=== PATIENT | female | born 1945 | race Caucasian/White ===

== ENCOUNTER 2017-08-05 08:21 | Inpatient (IN) ==
[2017-08-05] MEDS ORDERED: Naloxone 0.4 MG/ML INJ IVP PRN (10:29)
[2017-08-05] MEDS ORDERED: Acetaminophen 325 MG TABLET PO PRN (10:29)
--- NOTE | 2017-08-05 11:02 | Internal Med History&Physical ---
Date of Encounter: 08/05/17 Time of Encounter: 11:00 Internal Medicine - H&P: HPI Chief complaint: Nausea and vomiting along with diarrhea Admitted From: Hospital to Hospital Transfer History of present illness: Ms. Haddad is a 72 year old female patient with history of CHF, diabetes who presented to the ER at [facility] with complaints of nausea vomiting and diarrhea. She reports that her symptoms have been going on for 2 weeks. She was previously treated for urine infection with antibiotics. She denies any fevers or chills. She denies any abdominal pain. No chest pain at this time but according to ED records she reported chest pain at the facility. She had also noticed some episodes of blood in her stool. No dizziness or lightheadedness. Past Med Surg Social Fam HX - Past Medical History Attestation: Yes The following information was validated with the patient. Source: other (Reviewed records from [facility]) Medical history: CHF, DVT, diabetes - Past Surgical History Surgical History: appendectomy, cholecystectomy, knee replacement Additional surgical history: Tonsillectomy, Hernia repair. - Social History Smoking Status: Former smoker Alcohol use: none Drug use: none - Additional Family History Additional family history: Reviewed family history and found to be noncontributory at this time Internal Medicine - H&P: Meds 3 Allergy/AdvReac Type Severity Reaction Status Date / Time No Known Allergies Allergy Verified 08/05/17 10:49 All Systems PM: A 10-system review of systems was performed and is negative for pertinent findings except as documented above in the HPI. - Constitutional Constitutional: malaise, no chills, no fever(s), no night sweats - EENT Eyes: no change in vision, no discharge, no pain, no photophobia Ears: no ear discharge, no ear pain, no tinnitus Nose, mouth and throat: no dysphagia, no nasal discharge, no neck pain, no sore throat - Cardiovascular Cardiovascular ROS IM: no chest pain, no diaphoresis, no dyspnea, no lightheadedness, no palpitations, no syncope - Respiratory Respiratory: no cough, no dyspnea, no wheezing, no excessive phlegm production - Gastrointestinal Gastrointestinal: diarrhea, nausea, vomiting - Genitourinary Genitourinary: no change in urinary stream, no dysuria, no flank pain, no hematuria - Musculoskeletal Musculoskeletal ROS IM: no numbness, no tingling - Integumentary Integumentary IM: no rash, no unusual bruising - Neurological Neurological ROS: no confusion, no convulsions, no focal weakness, no numbness, no tingling, no tremor(s) - Hematologic/Lymphatic Hematologic/Lymphatic: no easy bruising - Constitutional Vitals: Temp Pulse Resp BP Pulse Ox 99.3 F 81 25 112/53 93 08/05/17 10:21 08/05/17 10:21 08/05/17 10:21 08/05/17 10:21 08/05/17 10:21 General appearance: Present: mild distress, A&O X 3, pleasant, answers questions appropriately - ENT ENT exam: Present: mucous membranes dry - Neck Neck exam general surgery: Present: supple, trachea midline. Absent: lymphadenopathy - Respiratory Respiratory exam: Present: CTAB. Absent: accessory muscle use, rales, rhonchi, wheezes - Cardiovascular Cardiovascular exam: Present: RRR, +S1, +S2. Absent: diastolic murmur, gallop, rubs, systolic murmur - GI/Abdominal GI/Abdominal exam: Present: normal bowel sounds, soft, no peritoneal signs. Absent: distended, tenderness - Extremities Exam Extremities exam: Present: warm, radial pulses palpable and symmetrical. Absent : calf tenderness, cyanotic, pedal edema - Neurological Exam Neurological exam: Present: CN II-XII intact, oriented X3, no focal deficits. Absent: facial droop, speech deficit - Skin Skin exam: Present: dry, intact Internal Med - H&P Results - Labs Labs: WBC 12.7 with 14 bands hemoglobin 10.3, platelets 78 urine shows 0-2 WBC, 3+ bacteria stool for occult blood was negative PT 13.1, INR 1.1, sodium 142, potassium 4.9, BUN 47, creatinine 2.6 - Impressions CT of the chest shows cardiomegaly, right pleural effusion, pulmonary congestion CT abdomen and pelvis shows hydronephrosis and perinephric stranding- nonspecific but could be related to a recently passed stone in appropriate clinical setting. - Assessment and plan (1) Sepsis Current Visit: Yes Status: Acute Assessment and plan: Patient presenting with sepsis. Etiology uncertain. She has been having diarrhea. Will check stool for C. difficile. She did receive Levaquin earlier today. We will hold off on further antibiotics till stool for C. difficile resulted. CT abdomen and pelvis shows perinephric stranding without any stone. Could be pyelonephritis if stool for C. difficile is negative. Lactic acidosis improving. We will continue to trend. Qualifiers: Sepsis type: sepsis due to unspecified organism Qualified Code(s): A41.9 - Sepsis, unspecified organism (2) Nausea vomiting and diarrhea Current Visit: Yes Status: Acute Assessment and plan: CT of the abdomen and pelvis shows perinephric stranding without any stone. Possible recently passed stone. However she is having diarrhea and was on antibiotics recently. Concern for C. difficile. We will check stool for C. difficile. (3) Dehydration, moderate Current Visit: Yes Status: Acute Assessment and plan: Treat with IV fluids. Monitor renal function. (4) Acute kidney injury Current Visit: Yes Status: Acute Assessment and plan: Acute kidney injury. Treat with IV fluids. Monitor renal function. Likely related to dehydration with nausea vomiting and diarrhea. (5) History of congestive heart failure Current Visit: Yes Status: Chronic Assessment and plan: History of CHF. Unspecified type. Will get 2-D echocardiogram. BNP is elevated however patient is not in any respiratory distress at this time. (6) Elevated troponin Current Visit: Yes Status: Acute Assessment and plan: Could be related to demand ischemia with acute illness and dehydration. Will trend troponins. She did have chest pain earlier but no chest pain at this time. We will get 2-D echocardiogram. (7) Diabetes mellitus, type 2 Current Visit: Yes Status: Chronic Assessment and plan: Monitor blood sugars. Sliding scale insulin. Qualifiers: Diabetes mellitus terminal operations supervisor insulin use: unspecified alf insulin use status Diabetes mellitus complication status: with kidney complications Diabetes mellitus complication detail: with chronic kidney disease Chronic kidney disease stage: stage 2 (mild) Qualified Code(s): E11.22 - Type 2 diabetes mellitus with diabetic chronic kidney disease; N18.2 - Chronic kidney disease, stage 2 (mild) - Time Spent With Patient Total time spent is greater than 50% in coordination of care (as documented) at patient's floor/unit and/or counseling patient:
[2017-08-05] MEDS ORDERED: D5% in Water 1,000 ML IVC PRN (12:01)
[2017-08-05] MEDS ORDERED: Dextrose Gel 15 GM/37.5 ML TUBE PO PRN ×2 (12:01)
[2017-08-05] MEDS ORDERED: *HR* Dextrose 50 % in Water (Syg) 50 ML SYRINGE IVP PRN (12:01)
[2017-08-05] MEDS: Ringers Solution, Lactated 1,000 ML IVC SCH (12:08)
[2017-08-05] MEDS: Insulin LISPRO 300 UNITS/3 ML VIAL SQ SCH ×3 (13:59→22:27)
[2017-08-05] MEDS ORDERED: Insulin LISPRO 300 UNITS/3 ML VIAL SQ SCH ×2 (16:30→21:00)
[2017-08-05] MEDS ORDERED: Levofloxacin 750 MG/150 ML 750 MG/150 ML BAG IVPB SCH (17:00)
[2017-08-05 17:33] LABS: Red Blood Count 2.82 M/mcL (3.82-4.97)
[2017-08-05 17:35] LABS: Hematocrit 27.8 % (35.3-44.9); Hemoglobin 9.3 g/dL (11.5-15.4); Immature Platelets 4.6 % (1.1-6.1); Mean Corpuscular HGB Conc 33.5 g/dL (31.6-35.5); Mean Corpuscular Volume 98.6 fL (83.0-100.0); Mean Platelet Volume 11.4 fL (9.4-12.4); Red Cell Distribution Width 12.6 % (11.5-14.5)
[2017-08-05 17:46] LABS: Platelet Count 62 K/mcL (140-400)
[2017-08-05] MEDS ORDERED: *HR* Heparin 5,000 UNIT/ML VIAL SQ SCH (18:00)
[2017-08-05 18:16] LABS: Lymphocytes # 1.4 K/mcL (0.6-4.6); Neutrophils # 14.6 K/mcL (1.6-8.9); Platelet Estimate Decreased (Normal)
[2017-08-06] MEDS: Ringers Solution, Lactated 1,000 ML IVC SCH (03:10)
[2017-08-06 05:15] LABS: Basophils % 0.2 %; Eosinophils % 0.1 %; Hemoglobin 8.8 g/dL (11.5-15.4); Mean Corpuscular Volume 98.1 fL (83.0-100.0)
[2017-08-06 05:17] LABS: Hematocrit 26.1 % (35.3-44.9); Immature Granulocytes % 4.1 % (0-4); Immature Platelets 4.6 % (1.1-6.1); Lymphocytes # 1.6 K/mcL (0.6-4.6); Lymphocytes % 10.3 %; Mean Corpuscular HGB Conc 33.7 g/dL (31.6-35.5); Mean Corpuscular Hemoglobin 33.1 pg (28.0-33.3); Mean Platelet Volume 10.9 fL (9.4-12.4); Monocytes # 0.8 K/mcL (0.0-1.3); Monocytes % 5.1 %; Neutrophils # 12.2 K/mcL (1.6-8.9); Red Blood Count 2.66 M/mcL (3.82-4.97); Red Cell Distribution Width 12.8 % (11.5-14.5); Segmented Neutrophils % 80.2 %
[2017-08-06 05:36] LABS: Calcium 9.3 mg/dL (8.6-10.3); Chol/HDL Ratio 2.8 (0-4.9); Potassium 4.9 mEq/L (3.5-5.1)
[2017-08-06 05:45] LABS: Platelet Count 56 K/mcL (140-400)
[2017-08-06 05:46] LABS: Platelet Estimate Decreased (Normal)
[2017-08-06] MEDS: Insulin LISPRO 300 UNITS/3 ML VIAL SQ SCH ×4 (08:06→21:30)
[2017-08-06] MEDS: Aspirin Enteric Coated 81 MG Tablet PO SCH (08:08)
[2017-08-06 08:38] LABS: Estimated Average Glucose 131 mg/dl; Hemoglobin A1C 6.2 %
--- NOTE | 2017-08-06 11:02 | Electrophysiology Consult Note ---
Date of Encounter: 08/06/17 Time of Encounter: 10:58 Assessment and Plan (1) Elevated troponin Current Visit: Yes Status: Acute Type II ID secondary to sepsis and ARF. Would treat conservatively and will check echo. Discussion w patient/family: The assessment and plan as outlined above was discussed with the patient and/or family members who expressed understanding and agreement. All questions were answered. Thank you for involving us in the care of your patient. Please call with any questions. History of Present Illness Consult date: 08/06/17 Requesting physician: Calvin Cortez Consult reason: Abnormal troponin Chief complaint: Nausea, vomiting, blood in stools. History of present illness: Ms. Haddad is a 72 year old female presented to outside hospital with GI complaints including blood on stool. She denies cardiac complaint including chest pain. She has been diagnosed with sepsis and ARF. Troponin has also been noted to be elevated. Past Med Surg Social Fam HX - Past Medical History Medical history: CHF, DVT, diabetes - Past Surgical History Surgical History: appendectomy, cholecystectomy, knee replacement Additional surgical history: Tonsillectomy, Hernia repair. - Social History Smoking Status: Former smoker Alcohol use: none Drug use: none Medications and Allergies Aspirin [Lo-Dose Aspirin EC] 81 mg PO DAILY 08/05/17 [History] C,E,Zinc,Copper 11/Qltcq5o/Lut [Ocuvite Adult 50 Plus Softgel] 1 cap PO DAILY [History] Citalopram Hydrobromide [Citalopram HBr] 20 mg PO DAILY 08/05/17 [History] Colesevelam [Welchol] 1,250 mg PO DAILY 08/05/17 [History] Ergocalciferol (VITAMIN D2) [Drisdol (50,000 Unit)] 50,000 unit PO QWEEK [History] Ferrous Sulfate [Ferrous Sulfate] 325 mg PO DAILY 08/05/17 [History] Furosemide [Lasix] 40 mg PO BID 08/05/17 [History] Levothyroxine [Synthroid] [place] [address]/05/17 [History] Lisinopril [Lisinopril] 2.5 mg PO DAILY 08/05/17 [History] Metformin HCl [Metformin HCl] 1,000 mg PO BID 08/05/17 [History] Mupirocin [Bactroban Oint] 1 appl TP TID 08/05/17 [History] Pioglitazone HCl [Pioglitazone HCl] 30 mg PO DAILY 08/05/17 [History] Simvastatin [Zocor] 20 mg PO HS 08/05/17 [History] 3 Allergy/AdvReac Type Severity Reaction Status Date / Time No Known Allergies Allergy Verified 08/05/17 16:32 All Systems Review: The remainder of the systems were reviewed and are negative Physical Examination Vital Signs, Last 4 Hours Temp Pulse Resp BP Pulse Ox 08/06/17 08:20 98 08/06/17 07:11 98.7 F 73 20 117/62 100 General: Conversant, No Apparent Distress HEENT: Atraumatic, Normocephaly, Mucus Membranes Moist Neck: No JVD, Normal carotid pulses Cardiac: Reg Rate and Rhythm, Normal S1 and S2, No Murmur Lungs: Normal Breath Sounds, No Wheeze, Rales, Rhonchi Neuro: Alert and responsive, No focal deficits noted Abdomen: Soft, Non-Tender Extremities: Other (mild edema, normal pulses) Results 08/06/17 04:36 08/06/17 04:36 Lab Results 08/05/17 08/05/17 08/05/17 10:48 10:48 16:38 WBC 17.0 H Hgb 9.3 L Hct 27.8 L Plt Count 62 L Sodium Potassium Chloride Carbon Dioxide BUN Creatinine Glucose Calcium Troponin I 0.26 H* 0.34 H* 08/06/17 08/06/17 04:36 04:36 WBC 15.2 H Hgb 8.8 L Hct 26.1 L Plt Count 56 L Sodium 138 Potassium 4.9 Chloride 107 Carbon Dioxide 25 BUN 62 H Creatinine 2.72 H Glucose 144 H Calcium 9.3 Troponin I - EKG Interpretation EKG results cardiology: other (LAD, LVH) Consult Discharge Plan - Plan Referrals: Amparo Belcher, ASSISTANT BOOKKEEPER [Primary Care Provider] -
--- NOTE | 2017-08-06 15:44 | Internal Med Progress Note ---
Date of Encounter: 08/06/17 Time of Encounter: 15:38 - Assessment and plan (1) Sepsis Current Visit: Yes Status: Acute Assessment and plan: high latic acid but now normal. unknown source. possibility for UTI as cloudy urine. CT of the abdomen and pelvis shows perinephric stranding without any stone. Possible recently passed stone. However she is also having gastroenteritis. no initial culture done during admission. continue levaquin- started at [facility] and added Zosyn but deescalate once pt start improving further. Qualifiers: Sepsis type: sepsis due to unspecified organism Qualified Code(s): A41.9 - Sepsis, unspecified organism (2) Gastroenteritis Current Visit: Yes Status: Acute Assessment and plan: N/V/D. better now. supportive treatment . IVF, as tolerating diet. pending stool for C. difficile. (3) Dehydration, moderate Current Visit: Yes Status: Acute Assessment and plan: better. IVF and encourage oral diet. (4) Acute kidney injury Current Visit: Yes Status: Acute Assessment and plan: Acute kidney injury. gentle hydration with i/o and BMP monitoring. Likely prerenal. avoid nephrotoxic drugs. (5) History of congestive heart failure Current Visit: Yes Status: Chronic Assessment and plan: echo done in july 2017 with EF 60%. History of mild diastolic heart failure. BNP is elevated however patient is not in any respiratory distress at this time. will repeat BNP. (6) Elevated troponin Current Visit: Yes Status: Acute Assessment and plan: no active chest pain. Could be related to demand ischemia with acute illness and dehydration. cardio on board. (7) Diabetes mellitus, type 2 Current Visit: Yes Status: Chronic Assessment and plan: Monitor blood sugars. continue accuchecks and Sliding scale insulin. Qualifiers: Diabetes mellitus extermination supervisor insulin use: unspecified extermination supervisor insulin use status Diabetes mellitus complication status: with kidney complications Diabetes mellitus complication detail: with chronic kidney disease Chronic kidney disease stage: stage 2 (mild) Qualified Code(s): E11.22 - Type 2 diabetes mellitus with diabetic chronic kidney disease; N18.2 - Chronic kidney disease, stage 2 (mild) (8) DVT prophylaxis Current Visit: Yes Status: Acute Assessment and plan: scds - Time Spent With Patient Total time spent is greater than 50% in coordination of care (as documented) at patient's floor/unit and/or counseling patient: 25 - 35 minutes - Subjective Interval history: better N/V/D. family at bedside. reviewed the labs with trending down wbc, HB. no active bleeding. denies f/c/abdomen pain/CP/SOB. cloudy urine somewhat- ordered U/A - Constitutional Vitals: Temp Pulse Resp BP Pulse Ox 98.6 F 72 20 128/63 99 08/06/17 11:28 08/06/17 11:28 08/06/17 11:28 08/06/17 11:28 08/06/17 11:28 General appearance: Present: A&O X 3, pleasant, answers questions appropriately - Eye Eye exam: Present: EOMI, PERRL - ENT ENT exam: Present: mucous membranes moist - Neck Neck exam general surgery: Present: supple - Respiratory Respiratory exam: Present: CTAB - Cardiovascular Cardiovascular exam: Present: RRR, +S1, +S2 - GI/Abdominal GI/Abdominal exam: Present: normal bowel sounds, soft - Extremities Exam Extremities exam: Present: warm, radial pulses palpable and symmetrical. Absent : calf tenderness, pedal edema - Neurological Exam Neurological exam: Present: CN II-XII intact, oriented X3, no focal deficits. Absent: pronater drift, facial droop, speech deficit Internal Medicine: Result - Labs CBC & Chem 7: 08/06/17 04:36 08/06/17 04:36 Labs: Short CBC 08/05/17 08/06/17 Range/Units 10:48 04:36 WBC 17.0 H 15.2 H (4.3-11.1) K/mcL Hgb 9.3 L 8.8 L (11.5-15.4) g/dL Hct 27.8 L 26.1 L (35.3-44.9) % Plt Count 62 L 56 L (140-400) K/mcL Neutrophils # 14.6 H 12.2 H (1.6-8.9) K/mcL BMP 08/06/17 04:36 Sodium 138 Potassium 4.9 Chloride 107 Carbon Dioxide 25 BUN 62 H Creatinine 2.72 H Glucose 144 H Calcium 9.3 Cardiac Enzymes 08/05/17 Range/Units 16:38 Troponin I 0.34 H* (< 0.04) ng/mL - Impressions Impressions Echocardiogram 08/05/17 11:25 Impressions: LVEF 60%. Normal LV chamber size, wall thickness and function. Mild left ventricular diastolic dysfunction. Normal right ventricular structure and function. Aortic valve not well visualized. Mild aortic sclerosis suggested by Doppler. Mean gradient 11 mmHg. No pulmonary hypertension. Left Ventricular Wall Motion: Rest Echo Findings All wall segments showed normal motion. Findings: Study Quality * Technically sub-optimal due to poor echocardiographic windows. ECG Findings * Normal sinus rhythm. Left Ventricle * LVEF 60%. * Normal LV chamber size, wall thickness and function. * Mild left ventricular diastolic dysfunction. Right Ventricle * Normal right ventricular structure and function. Left Atrium * Mildly dilated left atrium. Right Atrium * Mildly dilated right atrium. Aortic Valve * Aortic valve not well visualized. * No aortic regurgitation. * Mild aortic sclerosis suggested by Doppler. Mean gradient 11 mmHg. Mitral Valve * Normal mitral valve structure and function. * No mitral stenosis. * No mitral regurgitation. Tricuspid Valve * Normal tricuspid valve structure and function. * Trace tricuspid regurgitation. * No pulmonary hypertension. Pulmonic Valve * Pulmonic valve is not well visualized. Aorta * Normally sized aortic root. Pericardium * The pericardium appears normal. IVC * Normal IVC dimensions and inspiratory collapse. Pulmonary Artery * Normal visualized portions of the main pulmonary artery. Chest X-Ray 08/05/17 16:40 IMPRESSION: No acute findings. D/ / 08/05/2017 17:48:25 Daren Santo MD / mel Interpreting Provider: Daren Santo MD - VTE Documentation of Mechanical Device: Intermittent pneumatic compression device Consult Discharge Plan - Plan Referrals: Amparo Belcher BUSINESS PLANNING MANAGER [Primary Care Provider] -
[2017-08-06 16:23] LABS: Bilirubin,Urine Negative (Negative); Blood,Urine Large (Negative); Clarity,Urine Cloudy (Clear); Color,Urine Yellow (Yellow); Glucose,Urine (UA) Normal (Normal); Ketones,Urine Negative (Negative); Leukocyte Esterase,Urine Large (Negative); Nitrite,Urine Negative (Negative); PH,Urine 5.5 pH Units (5.0-8.0); Protein,Urine 30 mg/dL (Neg-Trace); Specific Gravity,Urine 1.016 (1.010-1.025); Urobilinogen,Urine Normal (Normal)
[2017-08-06 16:27] LABS: Bacteria,Urine None Seen per hpf (None-Few); Hyaline Casts,Urine Few per lpf (None-Few); RBC,Urine 50-100 per hpf (0-3); Squamous Epithelial Cell,Urine Many per lpf (None-Few); WBC,Urine 50-100 per hpf (0-3)
[2017-08-06] MEDS ORDERED: Piperacillin/Tazobactam 3.375 GM in 0.9 % Sodium Chloride Mini Bag 100 ML IVPB SCH (16:39)
[2017-08-06] MEDS: 0.9 % Sodium Chloride 1,000 ML IVC SCH (16:47)
[2017-08-06] MEDS: Pantoprazole 40 MG VIAL IVP SCH (16:47)
[2017-08-06] MEDS: Piperacillin/Tazobactam 3.375 GM in 0.9 % Sodium Chloride Mini Bag 100 ML IVPB SCH (16:47)
[2017-08-06 17:06] LABS: Hematocrit 28.9 % (35.3-44.9); Hemoglobin 9.7 g/dL (11.5-15.4)
[2017-08-07] MEDS: Piperacillin/Tazobactam 3.375 GM in 0.9 % Sodium Chloride Mini Bag 100 ML IVPB SCH ×2 (04:08→15:54)
[2017-08-07] MEDS: Pantoprazole 40 MG VIAL IVP SCH ×2 (06:07→16:49)
[2017-08-07 06:16] LABS: Basophils % 0.2 %
[2017-08-07 06:17] LABS: Calcium 9.2 mg/dL (8.6-10.3); Potassium 4.3 mEq/L (3.5-5.1)
[2017-08-07 06:18] LABS: Eosinophils # 0.2 K/mcL (0.0-0.6); Eosinophils % 1.5 %; Hematocrit 25.4 % (35.3-44.9); Hemoglobin 8.6 g/dL (11.5-15.4); Immature Granulocytes % 4.6 % (0-4); Immature Platelets 4.5 % (1.1-6.1); Lymphocytes # 1.4 K/mcL (0.6-4.6); Lymphocytes % 12.3 %; Mean Corpuscular HGB Conc 33.9 g/dL (31.6-35.5); Mean Corpuscular Hemoglobin 32.8 pg (28.0-33.3); Mean Corpuscular Volume 96.9 fL (83.0-100.0); Mean Platelet Volume 11.8 fL (9.4-12.4); Monocytes # 0.7 K/mcL (0.0-1.3); Monocytes % 5.6 %; Neutrophils # 8.9 K/mcL (1.6-8.9); Red Blood Count 2.62 M/mcL (3.82-4.97); Red Cell Distribution Width 12.4 % (11.5-14.5); Segmented Neutrophils % 75.8 %
[2017-08-07 06:22] LABS: Platelet Count 58 K/mcL (140-400)
[2017-08-07] MEDS: Insulin LISPRO 300 UNITS/3 ML VIAL SQ SCH ×4 (07:28→21:24)
[2017-08-07] MEDS: Aspirin Enteric Coated 81 MG Tablet PO SCH (07:32)
[2017-08-07] MEDS ORDERED: Multivit/Ca/Min/Fe/FA 1 TAB TABLET PO SCH (09:00)
--- NOTE | 2017-08-07 10:52 | Cardiology Progress Note ---
Date of Encounter: 08/07/17 Time of Encounter: 10:00 Assessment and Plan (1) Elevated troponin Current Visit: Yes Status: Acute Type II RI secondary to sepsis and ARF. No acute ischemic ECG changes noted. No chest pain reported. No indication for cardiac rehab TTE: LVEF 60%, mild LVDD, no PH, normal wall motion. Continue asa, statin. Will add low dose betablocker. No further cardiac testing warranted, Cardiology will sign-off. Will arrange for outpatient follow-up. Discussion w patient/family: The assessment and plan as outlined above was discussed with the patient and/or family members who expressed understanding and agreement. All questions were answered. Thank you for involving us in the care of your patient. Please call with any questions. The patient will be discussed and reviewed with Dr. Negron; changes to be made accordingly. Subjective Principal diagnosis: Sepsis, elevated troponin, dehydration Interval history: Seen and examined. No CV complaints today upon exam. No reported chest pain. Discussed results of echo with patient today. Objective Vital Signs, Last 4 Hours Temp Pulse Resp BP Pulse Ox 08/07/17 07:20 98.6 F 70 20 124/69 95 General: Conversant, No Apparent Distress, Other (pale) HEENT: Atraumatic, Normocephaly, Mucus Membranes Moist Cardiac: Reg Rate and Rhythm, Normal S1 and S2 Lungs: Normal Breath Sounds Neuro: Alert and responsive Abdomen: Soft Skin: No rashes noted on visualized skin Musculoskeletal: No Chest Wall Tenderness Extremities: No Edema, Normal Pulses Results 08/07/17 05:32 08/07/17 05:32 Lab Results 08/06/17 08/07/17 08/07/17 16:58 05:32 05:32 WBC 11.7 H Hgb 9.7 L 8.6 L Hct 28.9 L 25.4 L Plt Count 58 L Sodium 139 Potassium 4.3 Chloride 109 H Carbon Dioxide 23 BUN 53 H Creatinine 1.88 H Glucose 130 H Calcium 9.2 Intake & Output 08/04/17 08/05/17 08/06/17 08/07/17 23:59 23:59 23:59 23:59 Intake Total 910 / 910 3020 / 3020 600 / 600 Output Total 650 / 650 1250 / 1250 1150 / 1150 Balance 260 / 260 1770 / 1770 -550 / -550 Weight 97.3 kg 102.1 kg 103.2 kg Active Medications Acetaminophen (Tylenol) 650 mg PO Q6HR PRN PRN Reason: Mild Pain/Fever Stop: 02/04/18 10:30 Last Admin: 08/05/17 16:28 Dose: 650 mg Aspirin (Aspirin Ec) 81 mg PO DAILY [facility] Stop: 02/05/18 09:01 Last Admin: 08/07/17 07:32 Dose: 81 mg Citalopram Hydrobromide (Celexa) 20 mg PO DAILY [facility] Stop: 02/05/18 09:01 Last Admin: 08/07/17 07:32 Dose: 20 mg Colesevelam HCl (Welchol) 1,250 mg PO DAILY [facility] Stop: 02/05/18 09:01 Last Admin: 08/07/17 07:32 Dose: 1,250 mg Dextrose/Water (Dextrose 50% (Syg)) 25 ml IVP AD PRN PRN Reason: Hypoglycemia Stop: 02/04/18 12:02 Ergocalciferol (Drisdol (50,000 Unit)) 50,000 unit PO QWEEK [facility] Stop: 02/05/18 16:01 Last Admin: 08/06/17 16:47 Dose: 50,000 unit Ferrous Sulfate (Ferrous Sulfate) 325 mg PO DAILY [facility] Stop: 02/05/18 09:01 Last Admin: 08/07/17 07:32 Dose: 325 mg Glucagon (Glucagen) 1 mg IM ONCE PRN PRN Reason: Hypoglycemia Stop: 02/04/18 12:02 Glucose (Gluctose) 15 gm PO ONCE PRN PRN Reason: Hypoglycemia Stop: 02/04/18 12:02 Glucose (Gluctose) 30 gm PO ONCE PRN PRN Reason: Hypoglycemia Stop: 02/04/18 12:02 Dextrose (Dextrose 5%) 1,000 mls @ 100 mls/hr IVC .Q10H PRN PRN Reason: HYPOGLYCEMIA Stop: 02/04/18 12:02 Levofloxacin/Dextrose (Levaquin Premix 750mg/150 Ml) 750 mg in 150 mls @ 100 mls/hr IVPB Q48H [facility] PRN Reason: Protocol Stop: 02/04/18 17:01 Last Infusion: 08/05/17 18:43 Dose: Infused Piperacillin Sod/Tazobactam (Sod 3.375 gm/ Sodium Chloride) 100 mls @ 25 mls/ hr IVPB Q12H [facility] Stop: 02/05/18 16:01 Last Admin: 08/07/17 04:08 Dose: 25 mls/hr Sodium Chloride (0.9 % Sodium Chloride) 1,000 mls @ 50 mls/hr IVC .Q20H [facility] Stop: 02/05/18 16:01 Last Admin: 08/06/17 16:47 Dose: 50 mls/hr Insulin Human Lispro (Humalog) 0 units SQ HS [facility] PRN Reason: Protocol Stop: 02/04/18 21:01 Last Admin: 08/06/17 21:30 Dose: Not Given Insulin Human Lispro (Humalog) 0 units SQ TIDAC [facility] PRN Reason: Protocol Stop: 02/04/18 12:36 Last Admin: 08/07/17 07:28 Dose: Not Given Levothyroxine Sodium (Synthroid) 175 mcg PO 0630 [facility] Stop: 02/05/18 06:31 Last Admin: 08/07/17 06:07 Dose: 175 mcg Multivitamins/Calcium (Thera M Plus) 1 tab PO DAILY [facility] Stop: 02/06/18 09:01 Last Admin: 08/07/17 07:32 Dose: 1 tab Naloxone HCl (Narcan) 0.4 mg IVP Q2MIN PRN PRN Reason: SEE COMMENTS Stop: 02/04/18 10:30 Pantoprazole Sodium (Protonix) 40 mg IVP Q12HR [facility] Stop: 02/05/18 18:01 Last Admin: 08/07/17 06:07 Dose: 40 mg Simvastatin (Zocor) 20 mg PO HS [facility] PRN Reason: Protocol Stop: 02/04/18 21:01 Last Admin: 08/06/17 20:05 Dose: 20 mg - Imaging and Cardiology Echo: report reviewed Other Results: 12 hour tele: avg HR=71 SR. No events noted. - VTE Documentation of Mechanical Device: Intermittent pneumatic compression device Consult Discharge Plan - Plan Referrals: Amparo Belcher CNP [Primary Care Provider] - 08/15/17 4:00 pm Bola Balbuena MD [Partnered Physician] - (office will call patient at home with follow up appointment)
[2017-08-07] MEDS ORDERED: Metoprolol XL (24 HR) Succ 25 MG TAB.ER.24H PO SCH (11:15)
[2017-08-07] MEDS: 0.9 % Sodium Chloride 1,000 ML IVC SCH (11:37)
--- NOTE | 2017-08-07 12:07 | Internal Med Progress Note ---
Date of Encounter: 08/07/17 Time of Encounter: 12:05 - Assessment and plan (1) Sepsis Current Visit: Yes Status: Acute Assessment and plan: Improving. Likely secondary to UTI. She is also having gastroenteritis. No initial culture done during admission. Continue gentle IV, IV levaquin, and IV zosyn. Monitor vitals. Recheck labwork in AM. Qualifiers: Sepsis type: sepsis due to unspecified organism Qualified Code(s): A41.9 - Sepsis, unspecified organism (2) UTI (urinary tract infection) Current Visit: Yes Status: Acute Assessment and plan: Continue IV antibiotics as per above. Qualifiers: Urinary tract infection type: acute cystitis Hematuria presence: with hematuria Qualified Code(s): N30.01 - Acute cystitis with hematuria (3) Gastroenteritis Current Visit: Yes Status: Resolved Assessment and plan: Nausea, vomiting, and abdominal pain resolved. Continue supportive treatment. Continue PPI until H/H stabilized. (4) Dehydration, moderate Current Visit: Yes Status: Acute Assessment and plan: Improved. Continue gentle IVF and encourage PO hydration. Recheck BMP in AM. (5) Acute kidney injury Current Visit: Yes Status: Acute Assessment and plan: Improved. Continue gentle IVF and encourage PO hydration. Recheck BMP in AM. (6) Anemia Current Visit: Yes Status: Acute Assessment and plan: Negative hemoccult. H/H with small drop. Continue PPI. Recheck CBC in AM. Qualifiers: Anemia type: unspecified type Qualified Code(s): D64.9 - Anemia, unspecified (7) History of congestive heart failure Current Visit: Yes Status: Chronic Assessment and plan: Cardiology consulted; appreciate input. TTE: LVEF 60%, mild LVDD, no PH, normal wall motion. Continue home aspirin and statin. Beta girish added by cardiology. (8) Elevated troponin Current Visit: Yes Status: Acute Assessment and plan: No active chest pain. Could be related to demand ischemia with acute illness and dehydration. Cardiology consulted; appreciate input. They have optimized medications, reviewed ECHO, and signed off on further cardiac testing. Keep outpatient cardiology follow up. (9) Diabetes mellitus, type 2 Current Visit: Yes Status: Chronic Assessment and plan: Continue accuchecks and SSI QID AC/HS. Qualifiers: Diabetes mellitus mcfp insulin use: unspecified mcfp insulin use status Diabetes mellitus complication status: with kidney complications Diabetes mellitus complication detail: with chronic kidney disease Chronic kidney disease stage: stage 2 (mild) Qualified Code(s): E11.22 - Type 2 diabetes mellitus with diabetic chronic kidney disease; N18.2 - Chronic kidney disease, stage 2 (mild) (10) DVT prophylaxis Current Visit: Yes Status: Acute Assessment and plan: Defer anticoagulation at this time due to anemia and possible bleed. Continue SCDs. - Time Spent With Patient Total time spent is greater than 50% in coordination of care (as documented) at patient's floor/unit and/or counseling patient: less than 15 minutes - Subjective Interval history: Patient had no acute events overnight. She states that she is doing much better today. She wants to go home. We discussed risks associated with sepsis , anemia, and ELVIS, and she is agreeable to staying. She states that nausea, vomiting, and abdominal pain are resolved. Banuelos catheter was removed today, and she is urinating without any issues. She denies fever, chills, chest pain, or SOB. She has no complaints at this time. - Constitutional Vitals: Temp Pulse Resp BP Pulse Ox 98.8 F 70 18 143/80 100 08/07/17 11:26 08/07/17 11:44 08/07/17 11:26 08/07/17 11:26 08/07/17 11:26 General appearance: Present: cooperative, A&O X 3, pleasant, no acute distress, answers questions appropriately - Respiratory Respiratory exam: Present: CTAB. Absent: accessory muscle use, rales, rhonchi, wheezes Additional comments: Normal WOB - Cardiovascular Cardiovascular exam: Present: RRR, +S1, +S2. Absent: diastolic murmur, gallop, rubs, systolic murmur Additional comments: No BLE edema - GI/Abdominal GI/Abdominal exam: Present: normal bowel sounds, soft. Absent: distended, hepatomegaly, mass, splenomegaly, tenderness - Psychiatric Psychiatric exam: Present: normal affect, normal mood. Absent: agitated, anxious, depressed - Skin Skin exam: Present: dry, intact, warm. Absent: cyanosis, rash Internal Medicine: Result - Labs CBC & Chem 7: 08/07/17 05:32 08/07/17 05:32 Labs: Short CBC 08/06/17 08/07/17 Range/Units 16:58 05:32 WBC 11.7 H (4.3-11.1) K/mcL Hgb 9.7 L 8.6 L (11.5-15.4) g/dL Hct 28.9 L 25.4 L (35.3-44.9) % Plt Count 58 L (140-400) K/mcL Neutrophils # 8.9 (1.6-8.9) K/mcL BMP 08/07/17 05:32 Sodium 139 Potassium 4.3 Chloride 109 H Carbon Dioxide 23 BUN 53 H Creatinine 1.88 H Glucose 130 H Calcium 9.2 Urine 08/06/17 Range/Units 16:00 Urine Color Yellow (Yellow) Urine Clarity Cloudy A (Clear) Urine pH 5.5 (5.0-8.0) pH Units Ur Specific [place] 1.016 (1.010-1.025) Urine Protein 30 H (Neg-Trace) mg/dL Urine Glucose (UA) Normal (Normal) mg/dL - VTE Reasons for not Prescribing Prophylaxis: Medical contraindication (Anemia) Documentation of Mechanical Device: Intermittent pneumatic compression device Consult Discharge Plan - Plan Referrals: Amparo Belcher CNP [Primary Care Provider] - 08/15/17 4:00 pm Bola Balbuena MD [Partnered Physician] - (office will call patient at home with follow up appointment)
[2017-08-07] MEDS ORDERED: *HR* Dextrose 50 % in Water (Syg) 50 ML SYRINGE IVP PRN (14:22)
[2017-08-07] MEDS ORDERED: 0.9 % Sodium Chloride 1,000 ML IVC SCH (14:22)
[2017-08-07] MEDS ORDERED: D5% in Water 1,000 ML IVC PRN (14:22)
[2017-08-07] MEDS ORDERED: Acetaminophen 325 MG TABLET PO PRN (14:22)
[2017-08-07] MEDS ORDERED: Naloxone 0.4 MG/ML INJ IVP PRN (14:22)
[2017-08-07] MEDS ORDERED: Dextrose Gel 15 GM/37.5 ML TUBE PO PRN ×2 (14:22)
[2017-08-07] MEDS ORDERED: Piperacillin/Tazobactam 3.375 GM in 0.9 % Sodium Chloride Mini Bag 100 ML IVPB SCH (15:00)
[2017-08-07] MEDS ORDERED: Levofloxacin 750 MG/150 ML 750 MG/150 ML BAG IVPB SCH (17:00)
[2017-08-08] MEDS: Piperacillin/Tazobactam 3.375 GM in 0.9 % Sodium Chloride Mini Bag 100 ML IVPB SCH ×3 (01:01→18:09)
[2017-08-08 04:56] LABS: Basophils % 0.3 %
[2017-08-08 04:58] LABS: Eosinophils # 0.2 K/mcL (0.0-0.6); Eosinophils % 2.3 %; Hematocrit 27.9 % (35.3-44.9); Hemoglobin 9.5 g/dL (11.5-15.4); Immature Granulocytes % 0.5 % (0-4); Immature Platelets 3.5 % (1.1-6.1); Lymphocytes # 1.3 K/mcL (0.6-4.6); Lymphocytes % 16.3 %; Mean Corpuscular HGB Conc 34.1 g/dL (31.6-35.5); Mean Corpuscular Hemoglobin 33.1 pg (28.0-33.3); Mean Corpuscular Volume 97.2 fL (83.0-100.0); Mean Platelet Volume 11.1 fL (9.4-12.4); Monocytes # 0.6 K/mcL (0.0-1.3); Monocytes % 7.2 %; Neutrophils # 5.7 K/mcL (1.6-8.9); Red Blood Count 2.87 M/mcL (3.82-4.97); Red Cell Distribution Width 12.4 % (11.5-14.5); Segmented Neutrophils % 73.4 %
[2017-08-08 05:05] LABS: Platelet Count 70 K/mcL (140-400)
[2017-08-08 05:19] LABS: Calcium 9.5 mg/dL (8.6-10.3); Potassium 4.4 mEq/L (3.5-5.1)
[2017-08-08] MEDS: Pantoprazole 40 MG VIAL IVP SCH (06:29)
--- NOTE | 2017-08-08 08:17 | Internal Med Progress Note ---
Date of Encounter: 08/08/17 Time of Encounter: 11:00 - Assessment and plan (1) UTI (urinary tract infection) Current Visit: Yes Status: Acute Assessment and plan: Continue IV Zosyn for suspected UTI Qualifiers: Urinary tract infection type: acute cystitis Hematuria presence: with hematuria Qualified Code(s): N30.01 - Acute cystitis with hematuria (2) Gastroenteritis Current Visit: Yes Status: Resolved Assessment and plan: Apparently patient presented with nausea, vomiting, and abdominal pain which has resolved. Continue supportive treatment. (3) Sepsis Current Visit: Yes Status: Resolved Assessment and plan: Resolved; continue to monitor Qualifiers: Sepsis type: sepsis due to unspecified organism Qualified Code(s): A41.9 - Sepsis, unspecified organism (4) Dehydration, moderate Current Visit: Yes Status: Acute Assessment and plan: Improved; continue gentle IVF and encourage PO hydration. (5) Acute kidney injury Current Visit: Yes Status: Acute Assessment and plan: Improved; that and 1.61 today and was 2.72 on admission Continue gentle IVF and encourage PO hydration. Will continue to monitor renal function (6) Elevated troponin Current Visit: Yes Status: Acute (7) History of congestive heart failure Current Visit: Yes Status: Chronic Assessment and plan: TTE: LVEF 60%, mild LVDD, no PH, normal wall motion. Continue home aspirin and statin. Beta girish added by cardiology. (8) Diabetes mellitus, type 2 Current Visit: Yes Status: Chronic Assessment and plan: Continue accuchecks and SSI QID AC/HS. Qualifiers: Diabetes mellitus senior care insulin use: unspecified check examiner insulin use status Diabetes mellitus complication status: with kidney complications Diabetes mellitus complication detail: with chronic kidney disease Chronic kidney disease stage: stage 2 (mild) Qualified Code(s): E11.22 - Type 2 diabetes mellitus with diabetic chronic kidney disease; N18.2 - Chronic kidney disease, stage 2 (mild) (9) Anemia Current Visit: Yes Status: Acute Assessment and plan: Negative hemoccult. Hemoglobin stable; continue to monitor Qualifiers: Anemia type: unspecified type Qualified Code(s): D64.9 - Anemia, unspecified (10) DVT prophylaxis Current Visit: Yes Status: Acute Assessment and plan: Continue SCDs. - Time Spent With Patient Total time spent is greater than 50% in coordination of care (as documented) at patient's floor/unit and/or counseling patient: - Subjective Interval history: Patient alert and oriented but poor historian due to some confusion suspect secondary to memory loss which is most likely chronic She denies any symptoms this morning including denying any diarrhea or dysuria - Constitutional Vitals: Temp Pulse Resp BP Pulse Ox 98.7 F 71 18 125/65 98 08/08/17 07:02 08/08/17 07:02 08/08/17 07:02 08/08/17 07:02 08/08/17 07:02 General appearance: Present: cooperative, A&O X 3, pleasant, no acute distress, answers questions appropriately - Respiratory Respiratory exam: Present: CTAB. Absent: accessory muscle use, rales, rhonchi, wheezes - Cardiovascular Cardiovascular exam: Present: RRR, +S1, +S2. Absent: diastolic murmur, gallop, rubs, systolic murmur Internal Medicine: Result - Labs CBC & Chem 7: 08/08/17 04:42 08/08/17 04:42 Labs: Short CBC 08/08/17 Range/Units 04:42 WBC 7.7 (4.3-11.1) K/mcL Hgb 9.5 L (11.5-15.4) g/dL Hct 27.9 L (35.3-44.9) % Plt Count 70 L (140-400) K/mcL Neutrophils # 5.7 (1.6-8.9) K/mcL BMP 08/08/17 04:42 Sodium 144 Potassium 4.4 Chloride 112 H Carbon Dioxide 24 BUN 44 H Creatinine 1.61 H Glucose 185 H Calcium 9.5 - VTE Reasons for not Prescribing Prophylaxis: Medical contraindication (Anemia) Documentation of Mechanical Device: Intermittent pneumatic compression device Consult Discharge Plan - Plan Referrals: Amparo Belcher CNP [Primary Care Provider] - 08/15/17 4:00 pm Bola Balbuena MD [Partnered Physician] - (office will call patient at home with follow up appointment)
[2017-08-08] MEDS: Aspirin Enteric Coated 81 MG Tablet PO SCH (08:32)
[2017-08-08] MEDS: Metoprolol XL (24 HR) Succ 25 MG TAB.ER.24H PO SCH (08:32)
[2017-08-08] MEDS: Multivit/Ca/Min/Fe/FA 1 TAB TABLET PO SCH (08:32)
[2017-08-08] MEDS: Insulin LISPRO 300 UNITS/3 ML VIAL SQ SCH ×4 (08:35→22:41)
[2017-08-09] MEDS: Piperacillin/Tazobactam 3.375 GM in 0.9 % Sodium Chloride Mini Bag 100 ML IVPB SCH ×3 (01:31→15:57)
[2017-08-09] MEDS: Insulin LISPRO 300 UNITS/3 ML VIAL SQ SCH ×3 (08:19→15:58)
[2017-08-09] MEDS: Multivit/Ca/Min/Fe/FA 1 TAB TABLET PO SCH (08:20)
[2017-08-09] MEDS: Aspirin Enteric Coated 81 MG Tablet PO SCH (08:20)
[2017-08-09] MEDS: Metoprolol XL (24 HR) Succ 25 MG TAB.ER.24H PO SCH (08:21)
[2017-08-09 09:13] LABS: Basophils % 0.3 %; Eosinophils # 0.2 K/mcL (0.0-0.6); Eosinophils % 2.8 %; Immature Granulocytes % 0.9 % (0-4); Lymphocytes # 1.1 K/mcL (0.6-4.6); Lymphocytes % 17.6 %; Mean Corpuscular HGB Conc 33.3 g/dL (31.6-35.5); Mean Corpuscular Hemoglobin 32.4 pg (28.0-33.3); Mean Corpuscular Volume 97.1 fL (83.0-100.0); Mean Platelet Volume 11.2 fL (9.4-12.4); Monocytes # 0.5 K/mcL (0.0-1.3); Neutrophils # 4.5 K/mcL (1.6-8.9); Red Blood Count 2.78 M/mcL (3.82-4.97); Red Cell Distribution Width 12.5 % (11.5-14.5); Segmented Neutrophils % 70.4 %
[2017-08-09 09:14] LABS: Platelet Count 74 K/mcL (140-400)
[2017-08-09 09:31] LABS: Potassium 4.3 mEq/L (3.5-5.1)
[2017-08-09] MEDS: 0.9 % Sodium Chloride 1,000 ML IVC SCH (11:46)
--- NOTE | 2017-08-09 18:59 | Internal Med Progress Note ---
Date of Encounter: 08/09/17 Time of Encounter: 11:00 - Assessment and plan (1) Acute kidney injury Current Visit: Yes Status: Acute Assessment and plan: Improved; creatinine 1.39 this morning from 1.61 yesterday and 2.72 on admission Will give gentle IVF and encourage PO hydration. Will continue to monitor renal function (2) UTI (urinary tract infection) Current Visit: Yes Status: Acute Assessment and plan: Continue IV Zosyn for suspected UTI Qualifiers: Urinary tract infection type: acute cystitis Hematuria presence: with hematuria Qualified Code(s): N30.01 - Acute cystitis with hematuria (3) Gastroenteritis Current Visit: Yes Status: Resolved Assessment and plan: Apparently patient presented with nausea, vomiting, and abdominal pain which has resolved. Continue supportive treatment. (4) Sepsis Current Visit: Yes Status: Resolved Assessment and plan: Resolved; continue to monitor Qualifiers: Sepsis type: sepsis due to unspecified organism Qualified Code(s): A41.9 - Sepsis, unspecified organism (5) Dehydration, moderate Current Visit: Yes Status: Acute Assessment and plan: Improved; continue gentle IVF and encourage PO hydration. (6) Elevated troponin Current Visit: Yes Status: Acute Assessment and plan: No active chest pain. Could be related to demand ischemia with acute illness and dehydration. Cardiology consulted; appreciate input. They have optimized medications, reviewed ECHO, and signed off on further cardiac testing. Keep outpatient cardiology follow up. (7) History of congestive heart failure Current Visit: Yes Status: Chronic Assessment and plan: TTE: LVEF 60%, mild LVDD, no PH, normal wall motion. Continue home aspirin and statin. Beta girish added by cardiology. (8) Diabetes mellitus, type 2 Current Visit: Yes Status: Chronic Assessment and plan: Continue accuchecks and SSI QID AC/HS. Qualifiers: Diabetes mellitus fans clerk insulin use: unspecified fans clerk insulin use status Diabetes mellitus complication status: with kidney complications Diabetes mellitus complication detail: with chronic kidney disease Chronic kidney disease stage: stage 2 (mild) Qualified Code(s): E11.22 - Type 2 diabetes mellitus with diabetic chronic kidney disease; N18.2 - Chronic kidney disease, stage 2 (mild) (9) Anemia Current Visit: Yes Status: Acute Assessment and plan: Negative hemoccult. Hemoglobin stable; continue to monitor Qualifiers: Anemia type: unspecified type Qualified Code(s): D64.9 - Anemia, unspecified (10) DVT prophylaxis Current Visit: Yes Status: Acute Assessment and plan: Continue SCDs. - Time Spent With Patient Total time spent is greater than 50% in coordination of care (as documented) at patient's floor/unit and/or counseling patient: - Subjective Interval history: Patient appears a lot more alert and oriented this morning and was sitting up in the chair. Patient denies any further episodes of nausea/vomiting/diarrhea Renal function is improving but not quite at baseline. - Constitutional Vitals: Temp Pulse Resp BP Pulse Ox 98.0 F 65 18 154/72 100 08/09/17 15:52 08/09/17 15:52 08/09/17 15:52 08/09/17 15:52 08/09/17 15:52 General appearance: Present: cooperative, A&O X 3, pleasant, no acute distress, answers questions appropriately - Respiratory Respiratory exam: Present: CTAB. Absent: accessory muscle use, rales, rhonchi, wheezes - Cardiovascular Cardiovascular exam: Present: RRR, +S1, +S2. Absent: diastolic murmur, gallop, rubs, systolic murmur Internal Medicine: Result - Labs CBC & Chem 7: 08/09/17 08:12 08/09/17 08:12 Labs: Short CBC 08/09/17 Range/Units 08:12 WBC 6.4 (4.3-11.1) K/mcL Hgb 9.0 L (11.5-15.4) g/dL Hct 27.0 L (35.3-44.9) % Plt Count 74 L (140-400) K/mcL Neutrophils # 4.5 (1.6-8.9) K/mcL BMP 08/09/17 08:12 Sodium 144 Potassium 4.3 Chloride 115 H Carbon Dioxide 23 BUN 44 H Creatinine 1.39 H Glucose 169 H Calcium 9.0 - VTE Reasons for not Prescribing Prophylaxis: Medical contraindication (Anemia) Documentation of Mechanical Device: Intermittent pneumatic compression device Consult Discharge Plan - Plan Referrals: Amparo Belcher CNP [Primary Care Provider] - 08/15/17 4:00 pm Bola Balbuena MD [Partnered Physician] - (office will call patient at home with follow up appointment)
[2017-08-10] MEDS: Insulin LISPRO 300 UNITS/3 ML VIAL SQ SCH ×3 (00:08→12:38)
[2017-08-10] MEDS: Piperacillin/Tazobactam 3.375 GM in 0.9 % Sodium Chloride Mini Bag 100 ML IVPB SCH ×2 (00:10→08:28)
[2017-08-10] MEDS: 0.9 % Sodium Chloride 1,000 ML IVC SCH (06:23)
[2017-08-10 08:08] VITALS: BP 148/71
[2017-08-10] MEDS: Multivit/Ca/Min/Fe/FA 1 TAB TABLET PO SCH (08:27)
[2017-08-10] MEDS: Aspirin Enteric Coated 81 MG Tablet PO SCH (08:27)
[2017-08-10] MEDS: Metoprolol XL (24 HR) Succ 25 MG TAB.ER.24H PO SCH (08:28)
[2017-08-10 10:02] LABS: Basophils % 0.4 %; Eosinophils # 0.2 K/mcL (0.0-0.6); Eosinophils % 2.3 %; Hematocrit 28.2 % (35.3-44.9); Hemoglobin 9.3 g/dL (11.5-15.4); Lymphocytes # 1.2 K/mcL (0.6-4.6); Mean Corpuscular Hemoglobin 32.4 pg (28.0-33.3); Mean Corpuscular Volume 98.3 fL (83.0-100.0); Mean Platelet Volume 10.7 fL (9.4-12.4); Monocytes # 0.6 K/mcL (0.0-1.3); Monocytes % 8.7 %; Neutrophils # 4.8 K/mcL (1.6-8.9); Platelet Count 101 K/mcL (140-400); Red Blood Count 2.87 M/mcL (3.82-4.97); Red Cell Distribution Width 12.6 % (11.5-14.5); Segmented Neutrophils % 69.6 %
[2017-08-10 10:24] LABS: Potassium 4.1 mEq/L (3.5-5.1)
--- NOTE | 2017-08-10 14:51 | Discharge Summary ---
- NOTES TO OUTPATIENT PROVIDER Notes to Outpatient Provider: Primary care provider to monitor renal function ( creatinine/GFR) for resolution of acute kidney injury. Patient's low dose lisinopril has been discontinued because of acute kidney injury. Orders not resulted at time of discharge: Pending orders 08/06/17 15:36 Stool guiac [Occult Blood,Stool] [BF] Routine Date of Encounter: 08/10/17 Time of Encounter: 11:00 - Discharge Diagnosis (1) Acute kidney injury Priority: Primary Status: Acute (2) UTI (urinary tract infection) Priority: Primary Status: Acute Qualifiers: Urinary tract infection type: acute cystitis Hematuria presence: with hematuria Qualified Code(s): N30.01 - Acute cystitis with hematuria (3) Gastroenteritis Priority: Primary Status: Resolved (4) Sepsis Priority: Primary Status: Resolved Qualifiers: Sepsis type: sepsis due to unspecified organism Qualified Code(s): A41.9 - Sepsis, unspecified organism (5) Dehydration, moderate Priority: Primary Status: Acute (6) Elevated troponin Priority: Primary Status: Acute (7) History of congestive heart failure Priority: Secondary Status: Chronic (8) Diabetes mellitus, type 2 Priority: Secondary Status: Chronic Qualifiers: Diabetes mellitus long chain beamer insulin use: unspecified retirement insulin use status Diabetes mellitus complication status: with kidney complications Diabetes mellitus complication detail: with chronic kidney disease Chronic kidney disease stage: stage 2 (mild) Qualified Code(s): E11.22 - Type 2 diabetes mellitus with diabetic chronic kidney disease; N18.2 - Chronic kidney disease, stage 2 (mild) (9) Anemia Priority: Secondary Status: Acute Qualifiers: Anemia type: unspecified type Qualified Code(s): D64.9 - Anemia, unspecified Hospital course: Patient is a 72-year-old female with past medical history significant for CHF, diabetes who was transferred from [facility] to [facility] on 08/05/17 due to elevated cardiac biomarkers. Patient originally presented to [facility] due to nausea/vomiting/diarrhea. At [facility], patient was found to have elevated troponins and was therefore transferred to [facility] for ACS rule out. During patients hospital stay cardiology was consulted and suspected elevated cardiac biomarkers secondary to demand ischemia. Recommendations for patient to start a low dose beta girish and continue aspirin and statin. In addition, during patients hospital stay, patient was treated for UTI in addition to treatment for acute renal failure secondary to dehydration with IV fluids. Her creatinine steadily improve into the day of discharge. Patient will be discharged to discontinue low-dose lisinopril and to follow-up with primary care provider to continue to monitor renal function. - Time Spent with Patient Total time spent providing and/or coordinating discharge services: Less than 30 minutes - Discharge Medications Prescriptions: Metoprolol XL (24 HR) Succ [Toprol Xl] 12.5 mg PO DAILY #15 tab.er.24h Home Medications: Aspirin [Lo-Dose Aspirin EC] 81 mg PO DAILY 08/05/17 [History] C,E,Zinc,Copper 11/Tmbzk7n/Lut [Ocuvite Adult 50 Plus Softgel] 1 cap PO DAILY [History] Citalopram Hydrobromide [Citalopram HBr] 20 mg PO DAILY 08/05/17 [History] Colesevelam [Welchol] 1,250 mg PO DAILY 08/05/17 [History] Ergocalciferol (VITAMIN D2) [Drisdol (50,000 Unit)] 50,000 unit PO QWEEK [History] Ferrous Sulfate 325 mg PO DAILY 08/05/17 [History] Furosemide [Lasix] 40 mg PO BID 08/05/17 [History] Levothyroxine [[place]throid] [place] [address]/05/17 [History] Metformin HCl 1,000 mg PO BID 08/05/17 [History] Mupirocin [Bactroban Oint] 1 appl TP TID 08/05/17 [History] Pioglitazone HCl 30 mg PO DAILY 08/05/17 [History] Simvastatin [Zocor] 20 mg PO HS 08/05/17 [History] Metoprolol XL (24 HR) Succ [Toprol Xl] 12.5 mg PO DAILY #15 tab.er.24h 08/10/17 [Rx] Allergies/Adverse Reactions: 3 Allergy/AdvReac Type Severity Reaction Status Date / Time No Known Allergies Allergy Verified 08/05/17 16:32 Date of admission: 08/05/17 16:41 Primary care physician: Amparo Belcher CNP Consults: 08/05/17 17:07 Consult to Nutrition [CONS] Routine Comment: Consulting Provider: NUTRITION Reason for Dietary Consult: MST Score Consult to Employee Health Nurse [CONS] Routine Reason for SW Consult: Continuation 08/05/17 17:31 Consult to Cardiology [CONS] Routine Comment: Consulting Provider: Cardiology Luma Reason for Consult: Elevated troponin Call Completed: No - Constitutional Vitals: Temp Pulse Resp BP Pulse Ox 99.7 F H 71 14 148/71 97 08/10/17 12:19 08/10/17 12:19 08/10/17 12:19 08/10/17 12:19 08/10/17 12:19 General appearance: Present: cooperative, A&O X 3, pleasant, no acute distress, answers questions appropriately - Cardiovascular Cardiovascular exam: Present: RRR, +S1, +S2. Absent: diastolic murmur, gallop, rubs, systolic murmur - Patient Status Disposition: Home, Self-Care - Discharge Instructions Instructions: Metoprolol (By mouth), Urinary Tract Infection in Women (DC) Follow Up With: Amparo Belcher CNP [Primary Care Provider] - 08/15/17 4:00 pm (Please follow up as schedule....) Bola Balbuena MD [Partnered Physician] - (office will call patient at home with follow up appointment) - VTE Reasons for not Prescribing Prophylaxis: Medical contraindication (Anemia) Documentation of Mechanical Device: Intermittent pneumatic compression device
== END 2017-08-10 17:59 | disposition home or self-care (01) | DRG 871 ==
LOC: 2NNU → SUATTDRO 16:41 → 2ANU 08-07 14:12
PROVIDERS: ADMIT Internal Medicine; ATTEND Hospitalist